=== PATIENT | female | born 1960 | race Caucasian/White ===

== ENCOUNTER → 2016-07-07 | Day surgery (SDC) | payer BC ==
[~2016-07-07] MED LIST: BUPIVACAINE LIPOSOME/PF 1.3% 20 ML VIAL INF ONE; CEFOXITIN 1 GM VIAL ONE; DIBUCAINE OINTMENT 1 OZ TUBE TOP ONE; FENTANYL 100 MCG/2 ML VIAL IV ONE; FENTANYL 100 MCG/2 ML VIAL IV PRN; FENTANYL 100 MCG/2 ML VIAL ONE; GELATIN 1 SPO SPO TOP ONE; HYDROmorphone 1 MG INJECTION IV PRN; LABETALOL 20 MG/4 ML SYRINGE IV PRN; LIDOCAINE 100 MG PFS IV ONE; MEPERIDINE 25 MG/ML TUBEX IV PRN; MIDAZOLAM 2 MG/2 ML VIAL IV ONE; ONDANSETRON HCL 4 MG ODT TAB PO PRN; ONDANSETRON HCL 4 MG/2 ML VIAL IV ONE; ONDANSETRON HCL 4 MG/2 ML VIAL IV PRN; OXYCODONE HCL 5 MG TABLET ONE; PROPOFOL 200 MG/20 ML VIAL IV ONE; SUCCINYLCHOLINE 20 MG/1 ML INJ 10 ML MDV IV ONE; hydrALAZINE 20 MG/ML VIAL IV PRN
--- NOTE | 2016-07-07 10:09 | HIM.ANES ---
Anesthesia Evaluation & Plan Diagnoses: OTHER HEMORRHOIDS (07/07/16) - Focused Review of Systems Cardiac History: Yes: Hx Cardiac Disorders, Hx Abnormal Cholesterol/ Hyperlipidemia HEENT: Yes: Hx Vision Problem (CONTACTS), Other HEENT Problems Hx Other HEENT Surgery: WISDOM TEETH EXTRACTION Hx Other HEENT Problems: SEASONAL ALLERGIES Respiratory: Yes: Hx Snoring Gastrointestinal: Yes: Hx Gastroesophageal Reflux Disease, Hx Gastrointestinal Disorders Neurological/Musculoskeletal: Yes: Hx Back Pain No: Hx Neurological Disorders Psychological: No Hx Mental/Emotional Disorders Blood/Autoimmune: No: Hx AIDS, Hx Hepatitis (type) Smoking Status: Heavy tobacco smoker (5 or more cigarettes/day or daily pipe/ cigar) Other Surgical History: WISDOM TEETH EXTRACTION - Focused Physical Exam NPO since: after Midnight Mallampati: Class II Thyromental Distance: Greater than 3 Neck: Full Range of Motion Cardiovascular/Chest: Normal (RRR no mumurs or rubs.) Respiratory: Lungs clear. negative: Rhonchi, Wheezing Any problems with anesthesia, including nausea and vomiting?: No Any relatives with a history of Malignant Hyperthermia?: No Does the patient have a history of Motion Sickness-: No Other: Allergies Allergy/AdvReac Type Severity Reaction Status Date / Time No Known Allergies Allergy Verified 07/01/16 15:59 Home Medications Medication Instructions Recorded Last Taken Type Calcium Carbonate/Vitamin D3 1 each PO DAILY 07/01/16 Unknown History [Calcium 600-Vit D3 800 Tablet] Ibuprofen 400 mg PO Q4-6H PRN 07/01/16 Unknown History Multivitamin [One Daily] 1 each PO DAILY 07/01/16 Unknown History Height and Weight Patient's height 5 ft 9 in Patient's weight 104.326 kg - Anesthetic Plan Anesthesia Type: General ASA Class: 2 -: I have examined this patient and reviewed the medical record. The patient has been assessed prior to anesthesia. Risks and benefits of anesthesia and anesthetic technique options have been discussed and all questions answered. The patient accepts the risk and desires me to proceed with the planned anesthetic.
--- NOTE | 2016-07-07 12:01 | HIMOPRPT ---
DATE OF PROCEDURE: 07/07/16 PREOPERATIVE DIAGNOSIS: Internal hemorrhoid POSTOPERATIVE DIAGNOSIS: Internal hemorrhoid PROCEDURE: Examination under anesthesia. Internal hemorrhoidectomy and fistulotomy SURGEON: Gerald Haq MD ANESTHESIA: General anesthesia. ANESTHESIOLOGIST: Dr. Laith Lala SPECIMEN: Right posterior internal hemorrhoid SPONGE COUNT: Correct. PATIENT CONDITION: Stable. ESTIMATED BLOOD LOSS: 5 cc. INDICATIONS: This is a 55 year old female with external and internal hemorrhoids causing pain and bleeding.It was recommended to the patient examination under anesthesia and external and internal hemorrhoidectomy. The indications, benefits and risks associated with the operation were discussed patient in detail. The risk were discussed with the patient including, but limited to, bleeding, infection, injury to sphincter muscles resultant fecal incontinence, possibly permanent, deep vein thrombosis resultant pulmonary embolism, perioperative cardiac and respiratory morbidity mortality, hemorrhoid recurrence. All questions were answered. Informed consent was obtained FINDINGS: The patient had intact sphincter tone. There was redundant rectal mucosal tissue at the right anterior location that protruded when the patient strained. There was a polypoid appearing internal hemorrhoid at the posterior location, slightly to the right of midline. 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 There was a very thin skin bridge over top of this hemorrhoidal tissue, forming a superficial fistula. This skin bridge did not contain any muscle. No other hemorrhoidal tissue was identified. PROCEDURE IN DETAIL: MAC RIOJAS was taken to the operative suite response from placed in the supine position. General anesthesia were induced. Patient's plain the modified lithotomy position. The perianal and rectal area sterilely prepped and draped in the usual fashion. All members of the surgical team were in agreement regarding correct patient and correct procedure. The anoderm mucosa was infiltrated local anesthetic after aspirating first. The retractor was placed. The posterior hemorrhoidal tissue was reduced out of the fistula. The posterior hemorrhoidal tissue was grasped with an Allis and placed on traction and proximal sutures of 3 0 chromic suture were placed. Utilizing the Harmonic scalpel, the hemorrhoidal tissue was removed stayed away from the external and internal sphincter muscles. The 3-0 Chromic suture was used to form a running locking suture line over the cut edge of the hemorrhoidal tissue. Hemostasis was excellent. The thin skin bridge was examined and the entire fistula opened. Dibucaine and a Gel-Foam was placed. The patient was placed back in supine position. Anesthesia was reversed and Mrs. Riojas was taken to recovery having tolerated his procedure well.
[2016-07-07 13:27] VITALS: TEMP 97.8
[2016-07-07 14:26] VITALS: PULSE 67
--- NOTE | 2016-07-07 15:45 | SC.ANESPOS ---
Post-Anesthesia Note LOC: Fully Awake Post-Anesthesia Assessment: Awake, Returned to Baseline, Hemodynamically Stable , Pain Control Adequate Phase I & II Recovery Complete: Yes Apparent Anesthesia Complication: No : N PACU Discharge Time: 13:20 - Vital Signs Blood Pressure: 111/68 Pulse: 67 Resp Rate: 18 O2 Sat: 95 Temp: 97.8 F - Comments Anesthesia Discharge Time Report Time 13:20
[2016-07-07 15:46] VITALS: BP 111/68
== END ==
LOC: SDC 09:31
PROVIDERS: ATTEND Surgery
PROC: 06BY0ZC Excision of Hemorrhoidal Plexus, Open Approach (ICD-10-PCS; principal; 2016-07-07 11:20)
DX: K64.8 Other hemorrhoids (principal); E78.5 Hyperlipidemia, unspecified; K21.9 Gastro-esophageal reflux disease without esophagitis; F17.210 Nicotine dependence, cigarettes, uncomplicated; Z79.899 Other long term (current) drug therapy
CPT/HCPCS: 46260; C9290; J0694; J3010; J3490; J0330; J2001; J2250; J2405